=== PATIENT | female | born 1945 | race Caucasian/White ===

== ENCOUNTER 2016-10-20 20:46 | Emergency (ER) | payer OTHER, MEDICARE ==
[2012-10-23 06:30] VITALS: BMI 32.5
== END 2016-10-20 22:36 | disposition home or self-care (01) ==
LOC: D.ER 20:46
DX: S00.81XA Abrasion of other part of head, initial encounter (principal); W19.XXXA Unspecified fall, initial encounter; Y93.89 Activity, other specified; Y92.019 Unspecified place in single-family (private) house as the place of occurrence of the external cause; S69.91XA Unspecified injury of right wrist, hand and finger(s), initial encounter

== ENCOUNTER → 2016-11-03 16:48 | Outpatient (CLI) | payer MEDICARE ==
[2012-10-23 06:30] VITALS: BMI 32.5
== END | disposition home or self-care (01) ==
LOC: D.MAMMO 15:45
DX: Z12.31 Encounter for screening mammogram for malignant neoplasm of breast (principal)

== ENCOUNTER → 2017-11-11 09:37 | Outpatient (CLI) | payer MEDICARE ==
[2012-10-23 06:30] VITALS: BMI 32.5
== END | disposition home or self-care (01) ==
LOC: D.MAMMO 09:37
DX: Z12.31 Encounter for screening mammogram for malignant neoplasm of breast (principal)

== ENCOUNTER → 2020-05-15 10:03 | Outpatient (CLI) | payer MEDICARE ==
[2012-10-23 06:30] VITALS: BMI 32.5
== END | disposition home or self-care (01) ==
LOC: D.HCCECHO 10:03
PROVIDERS: ATTEND Internal Medicine Cardiovascular Disease
DX: I36.9 Nonrheumatic tricuspid valve disorder, unspecified (principal); I20.9 Angina pectoris, unspecified

== ENCOUNTER 2020-06-17 07:42 | Day surgery (SDC) | payer MEDICARE ==
[~2020-06-17] VITALS: Ht 165.1 cm; Wt 93.3 kg
--- NOTE | ~2020-06-17 | HEMODYNAMI ---
PATIENT:DONA CAST MEDICAL RECORD: [id number] : 47 LOCATION:D.CAT ADMISSION DATE: 06/17/20 Generatedon:06/17/202010:29 Patient name: DONA CAST Patient #: [id number] SSN: : 1945 Date of study: 06/17/2020 Page: Of Hemodynamic Procedure Report Patient Data Patient Demographics Procedure consent was obtained First Name: DONA Gender: Female Last Name: SEGUN : 1945 Middle Initial: M Age: 74 year(s) Patient #: [id number] Race: Additional ID: [id number] Contact details Address: [address] [place] [address] [place] State: [place] City: [place] Zip code: [address] Admission Admission Data Admission Date: 06/17/2020 Admission Time: 7:42 Arrival Date: 06/17/2020 Arrival Time: 0:00 Admit Source: Other Insurance Payor: Medicare [facility] #: [id number] Height (in.): 65 BSA: 2 (m2) Height (cm.): 165.1 BMI: 34.22 (kg/m2) Weight (lbs.): 205.63 Weight (kg.): 93.27 Lab Results Lab Result Date: 06/17/2020 Lab Result Time: 0:00 Biochemistry Name Units Result Min Max BUN mg/dl 21 --(----)-* 7 18 Creatinine mg/dl 0.8 --(-*--)-- 0.6 1.3 eGFR ml/min 73.24140 *-(----)-- 90 120 NONAFRICAN CBC Name Units Result Min Max Hematocrit % 36.7 *-(----)-- 42 54 Hemoglobin g/dl 12 *-(----)-- 13.5 17.5 Procedure Procedure Types Cath Procedure Diagnostic Procedure [facility] LH w/Coronaries Sedation Charges Moderate Sedation 10-24 minutes Procedure Description Procedure Date Procedure Date: 06/17/2020 Procedure Start Time: 10:14 Procedure End Time: 10:26 Procedure Staff Name Function Barney Haney MD Performing Physician Monique Crawford RT Monitor Neeru Piña RT Scrub John Teresa RN Nurse Jas Mueller RT Chef & Owner Procedure Data Cath Procedure Fluoroscopy Diagnostic fluoroscopy Total fluoroscopy Time: 2.3 time: 2.3 min min Diagnostic fluoroscopy Total fluoroscopy dose: 561 dose: 561 mGy mGy Contrast Material Contrast Material Type Amount (ml) Isovue 300 51 Entry Location Entry Primary Successful Side Size Upsize Upsize Entry Closure Burger ccessful Closure Location (Fr) 1 (Fr) 2 (Fr) Remarks Device Remarks Radial Right 6 Fr Mechanical artery Short Compression Estimated blood loss: 5 ml Procedure Complications No complications Procedure Medications Medication Administration Route Dosage Oxygen etCO2 Nasal cannula 2 l/min Heparin Flush Bag added to field 2 bags (1000units/500ml NS) 0.9% NaCl I.V. 100 ml/hr Lidocaine 2% added to field 20 Radial Cocktail added to field 1 syringe (Verapamil 2mg/Nitro 400mcg/Heparin 1500units) Fentanyl I.V. 50 mcg Versed I.V. 1 mg Fentanyl I.V. 50 mcg Versed I.V. 1 mg Fentanyl I.V. 50 mcg Versed I.V. 1 mg Fentanyl I.V. 50 mcg Radial Cocktail I.A. 1 syringe (Verapamil 2mg/Nitro 400mcg/Heparin 1500units) Hemodynamics Rest BSA: 2 (m2) HGB: 12 (g/dl) O2 Consumption: Estimated: 181.8 (ml/min) O2 Consumpt ion indexed: Estimated:90.9 (ml/min/m) Heart Rate: 69 (bpm) Pressure Samples Time Site Value (mmHg) Purpose Heart Use Rate(bpm) 10:19 AO 156/16(103) Snapshot 82 10:19 LV 197/35,51 Snapshot 95 10:20 AO 207/113(158) Pullback 120 Gradients Valve Time Site Site 2 Mean SEP/DFP Peak To Heart Use 1 (mmHg) (sec/min) Peak Rate (mmHg) (bpm) Aortic 10:20 LV AO 7 6 120 207/113(158) Calculations Valve P-P Mean Valve Index Valve Source Name Gradient Area Flow (cm2) Aortic 7 7 Snapshots Pre Cath Intra NCS Post Cath Vital Signs Time Heart Resp SPO2 etCO2 NIBP (mmHg) Rhythm Pain Sedation Rate (ipm) (%) (mmHg) Status Level (bpm) 9:45:16 67 16 100 0 163/76(112) NSR 0 (11) 10(A) , No pain 9:49:36 64 17 100 0 140/77(112) NSR 0 (11) 10(A) , No pain 9:53:54 68 16 100 0 128/74(93) NSR 0 (11) 10(A) , No pain 9:58:53 66 16 99 0 138/65(97) NSR 0 (11) 10(A) , No pain 10:03:07 64 16 100 0 133/80(100) NSR 0 (11) 9(A) , No pain 10:07:23 66 16 98 0 141/70(98) NSR 0 (11) 9(A) , No pain 10:11:41 63 16 97 0 129/68(95) NSR 0 (11) 9(A) , No pain 10:15:53 69 17 99 0 137/77(96) NSR 0 (11) 9(A) , No pain 10:21:52 90 17 97 0 165/84(128) NSR 0 (11) 9(A) , No pain 10:26:12 76 22 0 146/86(127) NSR 0 (11) 9(A) , No pain Medications Time Medication Route Dose Verified Delivered Reason Notes Effectiveness by by 9:47:11 Oxygen etCO2 2 l/min Barney John Per Nasal Lyndon Teresa RN physician cannula 9:47:19 Heparin Flush added 2 bags Barney John used for Bag to Lyndon Teresa vocational teacher (1000units/500ml field NS) 9:47:32 0.9% NaCl I.V. 100 Barney John Per ml/hr Lyndon Teresa RN physician 9:47:43 Lidocaine 2% added 20ml Barney John for local to vial Lyndon Teresa RN anesthetic field 9:47:53 Radial Cocktail added 1 Barney John used for (Verapamil to syringe Lyndon Teresa vocational teacher 2mg/Nitro field 400mcg/Heparin 1500units) 10:02:34 Fentanyl I.V. 50 mcg Barney John for sedation Lyndon Teresa RN 10:02:40 Versed I.V. 1 mg Barney John for sedation Lyndon Teresa RN 10:14:33 Fentanyl I.V. 50 mcg Barney John for sedation Lyndon Teresa RN 10:14:37 Versed I.V. 1 mg Barney John for sedation Lyndon Teresa RN 10:17:55 Fentanyl I.V. 50 mcg Barney John for sedation Lyndon Teresa RN 10:17:57 Radial Cocktail I.A. 1 Barney Barney for (Verapamil syringe Lyndon Haney MD vasodilation 2mg/Nitro 400mcg/Heparin 1500units) 10:20:01 Versed I.V. 1 mg Barney John for sedation Lyndon Teresa RN 10:20:48 Fentanyl I.V. 50 mcg Barney John for sedation Lyndon Teresa RN Procedure Log Time Note 9:18:36 Informed consent obtained and on chart 9:18:42 Diagnostic Cath Status : Elective 9:19:09 Arrival Date: 06/17/2020 12:00:00 AM 9:19:10 Admit Source: Other 9:19:14 Insurance Payor : Medicare 9:19:38 Patient Height : 65 inches 9:19:43 Patient Weight : 205.63 lbs 9:20:17 Lab Result : BUN 21 mg/dl 9:20:17 Lab Result : eGFR NONAFRICAN 73.15696 ml/min 9:20:17 Lab Result : Hemoglobin 12 g/dl 9:20:17 Lab Result : Creatinine 0.8 mg/dl 9:20:17 Lab Result : Hematocrit 36.7 % 9:20:44 Neeru VALENTINE(R) sent for patient. Start room use. 9:21:02 ACC Patient presents with Stable Angina CCS Anginal Class 2--Slight limitation of ordinary activity. 9:21:04 Procedure Status Elective Heart Cath (OP). 9:21:07 Time tracking: Regular hours (M-F 7:00 - 5:00) 9:21:11 Plan of Care:Hemodynamics will remain stable., Cardiac rhythm will remain stable., Comfort level will be maintained., Respiratory function will remain adequate., Patient/ family verbilizes understanding of procedure., Procedure tolerated without complication., Recovers from procedure without complications.. 9:30:36 Patient received from Pre/Post Procedure Room to [facility] 2 Alert and oriented. Tansferred to table in Supine position. 9:30:37 Warm blankets applied, and macie hugger turned on for patient comfort. 9:30:38 Correct patient and procedure confirmed by team. 9:30:38 ECG and BP/O2 sat monitors applied to patient. 9:40:11 Vital chart was started 9:40:12 Baseline sample Acquired. 9:40:15 Rhythm: sinus rhythm 9:40:17 Full Disclosure recording started 9:40:21 H&P Date Dictated: 06/17/2020 Within 30 days and on chart., H&P Addendum completed by physician on day of procedure. (MUST COMPLETE FOR ALL OUTPATIENTS). 9:40:22 Pre-procedure instructions explained to patient. 9:40:24 Family in patients room. 9:40:25 Patient NPO since Midnight. 9:40:35 Is the patient allergic to Iodine/contrast media? No. 9:40:36 Was the patient premedicated? Yes 9:40:37 Is patient on blood thinner?No 9:40:39 Patient diabetic? No. 9:40:41 Previous problem with sedation/anesthesia? No ? 9:40:43 Snore? Yes 9:40:43 Sleep apnea? Yes 9:40:44 Deviated septum? No 9:40:45 Opens mouth fully? Yes 9:40:46 Sticks out tongue? Yes 9:40:47 Airway obstruction? No ? 9:40:52 Dentures? Yes in tight 9:43:54 Pre procedure: right dorsailis pedis pulse 2+ Normal; easily identifiable; not easily obliterated 9:43:56 Pre procedure: left dorsailis pedis pulse 2+ Normal; easily identifiable; not easily obliterated 9:43:58 Patient pain scale 0/10 ?. 9:44:05 IV patent on arrival in left forearm with 0.9% NaCl at KVO. 9:44:07 Lab results completed and on chart. 9:44:39 Stress Test: yes; abnormal inferior 9:44:44 Right Radial & Right Groin area was prepped with chlora-prep and draped in sterile fashion 9:44:44 Alarms reviewed by R. N. 9:44:45 Sharps counted by scrub and verified by R.N. 9:44:51 2) 60-89 Mildly reduced kidney function, and other findings (as for stage 1) point to kidney disease. 9:45:20 Maximum allowable contrast dose (3.7 X eGFR X 0.75)205 ml. 9:47:11 Oxygen 2 l/min etCO2 Nasal cannula was administered by John Teresa RN; Per physician; Verbal order read back and verified. 9:47:19 Heparin Flush Bag (1000units/500ml NS) 2 bags added to field was administered by John Teresa RN; used for procedure; Verbal order read back and verified. 9:47:32 0.9% NaCl 100 ml/hr I.V. was administered by John Teresa RN; Per physician; Verbal order read back and verified. 9:47:43 Lidocaine 2% 20ml vial added to field was administered by John Teresa RN; for local anesthetic; Verbal order read back and verified. 9:47:53 Radial Cocktail (Verapamil 2mg/Nitro 400mcg/Heparin 1500units) 1 syringe added to field was administered by John Teresa RN; used for procedure; Verbal order read back and verified. 10:00:40 Physician arrived 10:00:40 --------ALL STOP TIME OUT------ 10:00:40 Final Timeout: patient, procedure, and site verified with staff and physician. All members of the team are in agreement. 10:00:43 Right Radial & Right Groin site verified by team. 10:00:46 Fire Safety Assessment: A--An alcohol-based skin anteseptic being used preoperatively., C--Open oxygen or nitrous oxide is being used., D--An ESU, laser, or fiber-optic light is being used. 10:01:38 Physical assessment completed. ASA score P 2 - A patient with mild systemic disease as per Barney Haney MD. 10:01:41 Sedation plan: IV Moderate Sedation Medication:Versed, Fentanyl 10:02:34 Fentanyl 50 mcg I.V. was administered by John Teresa RN; for sedation; Verbal order read back and verified. 10:02:38 Use device set Radial Dx or PCI 10:02:39 ACIST Syringe (98593) opened to sterile field. 10:02:39 Medline Cath Pack ([id number]) opened to sterile field. 10:02:40 Versed 1 mg I.V. was administered by Jonh Teresa RN; for sedation; Verbal order read back and verified. 10:02:40 Bag Decanter (2002S) opened to sterile field. 10:02:40 ACIST Hand Control (33975) opened to sterile field. 10:02:40 ACIST Manifold (28310) opened to sterile field. 10:02:41 Tegaderm 4 x 4 (1626W) opened to sterile field. 10:02:42 MBrace Wrist Support ([id number]) opened to sterile field. 10:02:43 EMERALD Guide Wire (671-594) opened to sterile field. 10:02:44 SHEATH 6FR RAIN (5927273) opened to sterile field. 10:10:15 Zero performed for pressure channel P1 10:12:05 Procedure started. 10:14:14 Local anesthetic to right radial artery with Lidocaine 2% by Barney Haney MD.INITIAL ACCESS ONLY 10:14:33 Fentanyl 50 mcg I.V. was administered by John Teresa RN; for sedation; Verbal order read back and verified. 10:14:37 Versed 1 mg I.V. was administered by John Teresa RN; for sedation; Verbal order read back and verified. 10:17:03 A 6 Fr Short sheath was inserted into the Right Radial artery 10:17:55 Fentanyl 50 mcg I.V. was administered by John Teresa RN; for sedation; Verbal order read back and verified. 10:17:57 Radial Cocktail (Verapamil 2mg/Nitro 400mcg/Heparin 1500units) 1 syringe I.A. was administered by Barney Haney MD; for vasodilation; Verbal order read back and verified. 10:19:26 LV hemodynamics recorded. 10:19:27 LV gram done using M[facility]AULEY 10:19:29 Injector settings: Ml/sec: 5, Volume: 15, 10:19:59 EF : 60 % 10:20:01 Versed 1 mg I.V. was administered by John Teresa RN; for sedation; Verbal order read back and verified. 10:20:48 Fentanyl 50 mcg I.V. was administered by John Teresa RN; for sedation; Verbal order read back and verified. 10:20:58 LCA angiography performed. 10:21:00 Injector settings: Ml/sec: 3, Volume: 6, 10:21:47 RCA angiography performed. 10:21:50 Injector settings: Ml/sec: 3, Volume: 6, 10:23:07 ZEPHYR REGULAR TR BAND (302799) opened to sterile field. 10:23:36 Catheter removed. 10:24:04 Sheath removed intact; hemostasis achieved with Mechanical Compression to the Right Radial artery. 10:24:09 Procedure ended.(Physican Out) 10:24:28 Fluoroscopy time 02.30 minutes. 10:24:31 Fluoroscopy dose: 561 mGy 10:24:31 Flurop Dose total: 561 10:24:38 Dose Area Product 84779 mGy/cm. 10:24:42 Contrast amount:Isovue 300 51ml. 10:24:44 Maximum allowable dose exceeded? No. 10:24:44 Sharps counted by scrub and verified by R.N. 10:24:47 [place] band inflated with 14cc of air. 10:24:48 Insertion/operative site no bleeding no hematoma. 10:24:52 Post right radial artery:stable 10:24:54 Post Procedure Pulses reassessed and unchanged 10:24:57 Post procedure rhythm: unchanged. 10:25:00 Estimated blood loss: 5 ml 10:25:24 Post procedure instruction explained to patient.Patient verbalizes understanding. 10:25:27 Patient needs reinforcement of post procedure teaching. 10:25:50 Procedure type changed to Cath procedure, Diagnostic procedure, LHC, [facility] w/Coronaries, Sedation Charges, Moderate Sedation 10-24 minutes 10:25:51 Procedure and supply charges have been captured, reviewed, submitted and are correct. 10:25:55 Procedure Complication : No complications 10:25:57 Vital chart was stopped 10:25:58 [facility] Findings: mild to moderate CAD (<70%) 10:26:08 Operative report dictated upon procedure completion. 10:26:09 See physician's report for complete and final results. 10:26:12 Report given to Pre/Post Procedure Room. 10:26:14 Patient transfered to Pre/Post Procedure Room with Stretcher. 10:26:17 Procedure ended. 10:26:17 Full Disclosure recording stopped 10:26:23 End room use (Document Last) 10:26:58 End room use (Document Last) 10:27:41 End room use (Document Last) Device Usage Item Name Manufacture Quantity Catalog Hospital Part Current Minima l Lot# / Number Charge Number Stock Stock Serial# Code ACIST Acist 1 [id number] [id number] 800045 [id number] 20 Syringe Medical (53440) Systems Inc Medline Medline 1 [id number] 816404 13596 347474 5 Cath Pack ([id number]) Bag Microtek 1 2001S 266343 52726 437617 5 Decanter Medical Inc. () ACIST Hand Acist 1 76903 236625 353148 679439 5 Control Medical (84686) Systems Inc ACIST Acist 1 63218 636067 232896 671266 5 Manifold Medical (57540) Systems Inc Tegaderm 4 3M 1 1626W 799395 465647 782933 5 x 4 (1626W) MBrace Advanced 1 [id number] 674651 30757 515636 5 Wrist Vascular Support Dynamics ([id number]) EMERALD Cardinal 1 781-808 835796 868173 245941 5 Guide Wire Health (427-888) SHEATH 6FR Cardinal 1 [id number] 701657 3346401 454668 5 RAIN Health (3843748) ZEPHYR Cardinal 1 034241 312991 3421052 468112 5 REGULAR TR Health BAND (767368) Signature Audit [place] Stage Time Signature Unsigned Intra-Procedure 06/17/2020 Monique Crawford 10:26:58 AM RT(R) Intra-Procedure 06/17/2020 John Teresa 10:27:42 AM RN Intra-Procedure 06/17/2020 Barney Haney MD 10:29:26 AM Signatures Performing Physician : Signature : Barney Haney MD Date : Time : Monitor : Monique Crawford RT Signature : Date : Time : Nurse : John Teresa RN Signature : Date : Time : [address] [place] [address]
[2020-06-17] MEDS ORDERED: PAXIL20 MG PO (08:24)
[2020-06-17] MEDS ORDERED: OMEPRAZOLE40 MG PO (08:24)
[2020-06-17] MEDS ORDERED: HCTZ25 MG PO (08:25)
[2020-06-17] MEDS ORDERED: OSTEO BI-FLEX1 EAC1 PO (08:25)
[2020-06-17 08:42] VITALS: BP 153/78; Ht 165.1 cm; Wt 93.3 kg
[2020-06-17 08:56] LABS: BASOPHILS 0.5 % (0-2); EOSINOPHILS 7.5 % (0-7); HEMATOCRIT 36.7 % (36.0-48.0); LYMPHOCYTES 32.5 % (15-50); MCH 31.6 pg (26.0-34.0); MCHC 32.7 g/dL (31.0-37.0); MCV 96.6 fL (80.0-100.0); MEAN PLATELET VOLUME 10.9 fL (7.4-10.4); MONOCYTES 12.4 % (2-11); NEUTROPHILS 47.1 % (40-80); PLATELET COUNT 242 10x3/uL (130-400); RDW 12.9 % (11.5-14.5); WBC 5.9 10x3/uL (4.8-10.8)
[2020-06-17 09:12] LABS: ANION GAP 11.9 mmol/L (8-16); CALCIUM 8.9 mg/dL (8.5-10.1); CARBON DIOXIDE 24.1 mmol/L (21.0-32.0); CHOL - HDL RATIO 3.6 ratio (2.3-4.1); CREATININE - SERUM 0.8 mg/dL (0.6-1.3); LDL-HDL RATIO 2.3 ratio (1.5-3.5)
--- NOTE | 2020-06-17 10:35 | NUR ---
PT REC'D TO ROOM 3 VIA STRETCHER FROM CLIENT SERVICE SUPERVISOR. MONITORS ESTAB. DAUGHTER AT BS. SEE ORTHOPEDICS NURSE. ALARMS ON AND C/L IN REACH.
--- NOTE | 2020-06-17 10:50 | NUR ---
R WRIST SITE C/D/I, NO S/S BLEEDING OR HEMATOMA. R ARM/HAND WARM WITH PALP PULSES AND BRISK CAP REFILL. VSS. PT RESTING QUEITLY.
--- NOTE | 2020-06-17 11:20 | NUR ---
R WRIST SITE C/D/I, NO S/S BLEEDING OR HEMATOMA. PULSES PALP. VSS. PT RESTING QUIETLY, DAUGHTER AT BS.
--- NOTE | 2020-06-17 11:35 | NUR ---
3 CC AIR REMOVED FROM Z BAND, NO S/S BLEEDING OR HEMATOMA. PULSES PALP, VSS. PT DENIES PAIN OR NEEDS. C/L IN REACH.
--- NOTE | 2020-06-17 11:50 | NUR ---
TOTAL 5CC AIR REMOVED FROM Z BAND, NO S/S BLEEDING OR HEMATOMA. R ARM/HAND WARM WITH PALP PULSES. ALARMS ON AND C/L IN REACH.
--- NOTE | 2020-06-17 12:05 | NUR ---
TOTAL 7 CC AIR REMOVED FROM Z BAND. R ARM/HAND WARM. R WRIST SITE C/D/I, NO S/S BLEEDING OR HEMATOMA. PULSES PALP, VSS
--- NOTE | 2020-06-17 12:25 | NUR ---
ALL AIR REMOVED FROM Z BAND, NO S/S BLEEDING OR HEMATOMA. PULSES PALP. VSS. PT REFUSES SANDWICH OR DRINK AT THIS TIME.
--- NOTE | 2020-06-17 12:45 | NUR ---
R WRIST SITE C/D/I. NO S/S BLEEDING. PIV D/C'D INTACT, DSG APPLIED. PT ALLOWED UP TO GET DRESSED AND GO TO BR INDEPENDENTLY.
--- NOTE | 2020-06-17 12:55 | NUR ---
ALL DISCHARGE INSTRUCTIOND REVIEWED WITH PT AND DAUGHTER. BOTH VERBALIZE UNDERSTANDING. Z BAND OFF, NO S/S BLEEDING. DSG AND ARMBOARD APPLIED.
--- NOTE | 2020-06-17 12:58 | NUR ---
PT D/C'D TO PRIVATE VEHICLE WITH DAUGHTER, PT HAS ALL PAPERWORK AND BELONGINGS.
== END 2020-06-17 12:58 | disposition home or self-care (01) ==
LOC: D.CATH 07:42
PROVIDERS: ATTEND Internal Medicine Cardiovascular Disease
DX: I20.9 Angina pectoris, unspecified (principal); R94.39 Abnormal result of other cardiovascular function study; R07.9 Chest pain, unspecified; I05.0 Rheumatic mitral stenosis

== ENCOUNTER 2020-10-20 08:00 | Outpatient (CLI) | payer MEDICARE ==
[2020-06-17 08:42] VITALS: BMI 34.2
[~2020-10-20 08:00] MED LIST: HCTZ25 MG PO; OMEPRAZOLE40 MG PO; OSTEO BI-FLEX1 EAC1 PO; PAXIL20 MG PO
== END 2020-10-20 08:01 | disposition home or self-care (01) ==
LOC: D.MAMMO 08:00
PROVIDERS: ATTEND Family Medicine
DX: Z12.31 Encounter for screening mammogram for malignant neoplasm of breast (principal)